=== PATIENT | female | born 1990 | race Asian ===

== ENCOUNTER 2016-03-17 16:49 | Emergency (ER) | payer OTHER ==
[~2016-03-17] VITALS: Ht 165.1 cm; Wt 95.3 kg
[2016-03-17 18:48] LABS: PLATELET COUNT 379 K/uL (152-353)
[2016-03-17 19:50] VITALS: BP 148/62; TEMP 98.5
== END 2016-03-17 19:51 | disposition home or self-care (01) ==
LOC: ED 16:49
PROVIDERS: Specialist
DX: R10.84 Generalized abdominal pain (principal); Z34.81 Encounter for supervision of other normal pregnancy, first trimester
CPT/HCPCS: 36415; 81000; 81025; 84702; 85027; 99283

== ENCOUNTER 2018-12-14 07:55 | Day surgery (SDC) | payer OTHER ==
[2018-12-14 08:35] LABS: POTASSIUM 3.9 mmol/L (3.6-5.2); SODIUM 137 mmol/L (136-145)
[2018-12-14 09:45] LABS: PLATELET COUNT 356 K/uL (152-353)
== END 2018-12-14 13:32 | disposition home or self-care (01) ==
LOC: OR 07:55
PROVIDERS: Student in an Organized Health Care Education/Training Program
PROC: 0FT44ZZ Resection of Gallbladder, Percutaneous Endoscopic Approach (ICD-10-PCS; principal; 2018-12-14)
DX: K80.10 Calculus of gallbladder with chronic cholecystitis without obstruction (principal)
CPT/HCPCS: 80053; 81025; 85027; J0132; J0330; J0690; J1100; J1170; J1885; J2001; J2250; J2405; J2704; J2710; J2765; J3010; J3490